=== PATIENT | female | born 1950 | race African-American/Black ===

== ENCOUNTER 2016-10-01 12:13 | Emergency (ER) | payer MEDICARE, OTHER ==
[~2016-10-01] VITALS: Ht 157.5 cm; Wt 73.0 kg
[~2016-10-01 12:13] MED LIST: DOCU100C5 PO; ESOM40CA PO; HYDR-971 PO; METH4TAB2 PO; NIFE30TA9 PO; OXYC1TAB7 PO; TRIA1TAB3 PO
[2016-10-01 12:22] VITALS: BP 163/78
[2016-10-01] MEDS ORDERED: FLUC150T PO (13:10)
[2016-10-01] MEDS ORDERED: NYST50002 PO (13:10)
--- NOTE | 2016-10-01 13:11 | PHYS DOC ---
Past Medical History Past Medical History: Hypertension Past Surgical History: Other Additional Past Surgical Histo: BACK SURGERY, BOWEL RESECTION Alcohol Use: Rarely Drug Use: None Adult General Chief Complaint Chief Complaint: SKIN PROBLEM HPI HPI Patient is a 66 year old female presents emergency department stating that she has a rash in between her breast and just under her breast. She states that it is moist and itchy. She states that she's had this for approximately 3 or 4 days. She's tried using [id number] medications without relief. She denies any shortness of breath or difficulty breathing. She denies any odor coming from the site. Review of Systems Review of Systems Constitutional: Denies fever or chills [] Eyes: Denies change in visual acuity, redness, or eye pain [] HENT: Denies nasal congestion or sore throat [] Respiratory: Denies cough or shortness of breath [] Cardiovascular: No additional information not addressed in HPI [] GI: Denies abdominal pain, nausea, vomiting, bloody stools or diarrhea [] : Denies dysuria or hematuria [] Musculoskeletal: Denies back pain or joint pain [] Integument: rash denies skin lesions [] Neurologic: Denies headache, focal weakness or sensory changes [] Endocrine: Denies polyuria or polydipsia [] Allergies Allergies Allergies Coded Allergies Type Severity Reaction Last Updated Verified No Known Drug Allergies 05/14/15 No Physical Exam Physical Exam Constitutional: Well developed, well nourished, no acute distress, non-toxic appearance. [] HENT: Normocephalic, atraumatic, bilateral external ears normal, oropharynx moist, no oral exudates, nose normal. [] Eyes: PERRLA, EOMI, conjunctiva normal, no discharge. [] Neck: Normal range of motion, no tenderness, supple, no stridor. [] Cardiovascular:Heart rate regular rhythm, no murmur [] Lungs & Thorax: Bilateral breath sounds clear to auscultation [] Skin: Warm, dry, no erythema. Patient with rash noted in between her bilateral breasts area that appears to be red and irritated. It appears to be a yeasty type rash. The area appears to be very moist. Back: No tenderness Extremities: No tenderness, no cyanosis, no clubbing, ROM intact, no edema. [] Neurologic: Alert and oriented X 3, normal motor function, normal sensory function, no focal deficits noted. [] Psychologic: Affect normal, judgement normal, mood normal. [] Current Patient Data Vital Signs Vital Signs Date Time Temp Pulse Resp B/P (MAP) Pulse Ox O2 Delivery O2 Flow Rate FiO2 10/01/16 12:22 98.0 98 18 98 Room Air 98.0 EKG EKG [] Radiology/Procedures Radiology/Procedures [] Course & Med Decision Making Course & Med Decision Making Pertinent Labs and Imaging studies reviewed. (See chart for details) Spoke with patient regards to using Diflucan. She'll also be provided with nystatin powder in which she can placed in the area. Recommended keeping the area clean and dry. She is also requesting information on what to do for itching and irritation explained to her she may take Benadryl [id number] although this will cause drowsiness do not take any be alert and oriented. Patient will be discharged home in stable condition signs symptoms to return back to emergency department as been provided. [] Dragon Disclaimer Dragon Disclaimer This electronic medical record was generated, in whole or in part, using a voice recognition dictation system. Departure Departure Impression: Primary Impression: Vonda infection Disposition: HOME, SELF-CARE Condition: STABLE Referrals: ABBY MILLER MD (PCP) Patient Instructions: Vonda Infection, Adult Additional Instructions: Medication as prescribed. Keep the area clean and dry. You may take Benadryl [id number] to help with irritation and itching as well. This medication will cause drowsiness do not take any be alert and oriented. Follow-up with your primary care physician in the next 5-7 days. Return back to emergency prior signs symptoms of become worse. Scripts Nystatin (NYSTATIN) 50,000,000 Unit Powder.ea. [id number] UNIT PO BID, #1 EACH Prov: SATHYA DORAN APRN 10/01/16 Fluconazole (DIFLUCAN) 150 Mg Tablet 1 TAB PO ONCE, #1 TAB Prov: SATHYA DORAN APRN 10/01/16 SATHYA DORAN APRN October 01, 2016 13:11
== END 2016-10-01 13:40 | disposition home or self-care (01) ==
LOC: ER 13:22
DX: B37.9 Candidiasis, unspecified (principal); I10 Essential (primary) hypertension
CPT/HCPCS: 99283

== ENCOUNTER 2017-06-13 14:09 | Emergency (ER) | payer MEDICARE, OTHER | END 2017-06-13 15:45 | disposition home or self-care (01) | LOC: ER 14:09 | DX: M79.644 Pain in right finger(s) (principal) | CPT/HCPCS: 29125; 73140; 99284-25 ==

== ENCOUNTER 2019-01-23 11:29 | Emergency (ER) | payer MEDICARE, OTHER ==
[~2019-01-23] VITALS: Ht 157.5 cm; Wt 68.9 kg
[~2019-01-23 11:29] MED LIST changes: +DOCU100C28 PO; -DOCU100C5 PO; +FLUC150T PO; +HYDR-3164 PO; -HYDR-971 PO; +NIFE30TA15 PO; -NIFE30TA9 PO; +NYST50002 PO
[2019-01-23 12:21] VITALS: BP 170/89
[2019-01-23] MEDS ORDERED: ORPH100T PO (12:43)
--- NOTE | 2019-01-23 12:43 | PHYS DOC ---
Past Medical History Past Medical History: GERD, High Cholesterol, Hypertension Additional Past Medical Histor: BOWEL OBSTRUCTION Past Surgical History: No Surgical History Additional Past Surgical Histo: BACK SURGERY, BOWEL RESECTION Alcohol Use: Occasionally Drug Use: None Adult General Chief Complaint Chief Complaint: SHOULDER INJURY HPI HPI Patient is a 69 year old female who presents with just got back from going on a cruise and had some heavy suitcases and uses the right arm to lift a suitcase a lot. Patient states that after the first day of this scan having right shoulder pain that went into the shoulder and down into the front of the shoulder and down into the back and on her side. Patient states she thinks she pulled a muscle because it only hurts with movement. Review of Systems Review of Systems Constitutional: Denies fever or chills [] Musculoskeletal: Denies back pain. Right shoulder joint pain [] Integument: Denies rash or skin lesions [] Neurologic: Denies headache, focal weakness or sensory changes [] All other systems were reviewed and found to be within normal limits, except as documented in this note. Allergies Allergies Allergies Coded Allergies Type Severity Reaction Last Updated Verified No Known Drug Allergies 05/14/15 No Physical Exam Physical Exam Constitutional: Well developed, well nourished, no acute distress, non-toxic appearance. [] Skin: Warm, dry, no erythema, no rash. [] Back: No tenderness, no CVA tenderness. [] Extremities: Right shoulder lateral, posterior and anterior tenderness, no cyanosis, no clubbing, ROM intact, no edema. [] Neurologic: Alert and oriented X 3, normal motor function, normal sensory function, no focal deficits noted. [] Psychologic: Affect normal, judgement normal, mood normal. [] Current Patient Data Vital Signs Vital Signs Date Time Temp Pulse Resp B/P (MAP) Pulse Ox O2 Delivery O2 Flow Rate FiO2 01/23/19 12:21 97.7 75 18 170/89 (116) 98 Room Air 97.7 EKG EKG [] Radiology/Procedures Radiology/Procedures [] Course & Med Decision Making Course & Med Decision Making Patient is a 69 year old female who presents with just got back from going on a cruise and had some heavy suitcases and uses the right arm to lift a suitcase a lot. Patient states that after the first day of this scan having right shoulder pain that went into the shoulder and down into the front of the shoulder and down into the back and on her side. Patient states she thinks she pulled a muscle because it only hurts with movement. Patient has full range of motion in the shoulder. Patient rates her pain an 8 out of 10 with movement. Denies any numbness or tingling or coolness of the extremity. Patient denies any skin color changes in the extremity. There is no swelling to the shoulder. No laxity in the joint. No deformity is seen or felt and the shoulder. Patient states she's been taking ibuprofen and Tylenol. Radial pulses are present. Skin pink warm and dry. Ambulatory with a steady gait. Patient is using that extremity. Cap refill less than 3 seconds. Patient is told to use a heating pad and continue taking ibuprofen. Patient is t old to follow-up with her primary care provider and to try not to use the extremity with any heavy lifting until it is healed. Dragon Disclaimer Dragon Disclaimer This electronic medical record was generated, in whole or in part, using a voice recognition dictation system. Departure Departure Impression: Primary Impression: Shoulder strain Disposition: 01 HOME, SELF-CARE Condition: STABLE Referrals: ABBY MILLER MD (PCP) Patient Instructions: Shoulder Pain, Shoulder Sprain Additional Instructions: Follow up with primary care provider. Take medications as prescribed. Continue taking Advil and using a heating pad. Scripts Orphenadrine Citrate (ORPHENADRINE CITRATE) 100 Mg Tablet.er 1 TAB PO BID, #20 TAB 1 Refill Prov: SATHYA CARPIO APRN 01/23/19 Problem Qualifiers Primary Impression: Shoulder strain Encounter type: initial encounter Laterality: right Qualified Codes: S46.911A - Strain of unspecified muscle, fascia and tendon at shoulder and upper arm level, right arm, initial encounter SATHYA CARPIO APRN Jan 23, 2019 12:43
== END 2019-01-23 13:17 | disposition home or self-care (01) ==
LOC: ER 11:29
DX: S46.911A Strain of unspecified muscle, fascia and tendon at shoulder and upper arm level, right arm, initial encounter (principal); K21.9 Gastro-esophageal reflux disease without esophagitis; E78.00 Pure hypercholesterolemia, unspecified; I10 Essential (primary) hypertension; X50.9XXA Other and unspecified overexertion or strenuous movements or postures, initial encounter; Y93.89 Activity, other specified; Y92.89 Other specified places as the place of occurrence of the external cause; Y99.8 Other external cause status
CPT/HCPCS: 99283

== ENCOUNTER → 2019-01-31 | Outpatient (CLI) | payer MEDICARE, OTHER ==
[2019-01-23 12:21] VITALS: BP 170/89
[~2019-01-31] MED LIST changes: +ORPH100T PO
--- NOTE | 2019-01-31 16:51 | RAD ---
RIGHT SHOULDER , 3 VIEWS Clinical Indication: Acute right shoulder pain. Comparison: None. Findings: There is no acute fracture or dislocation. The acromioclavicular and glenohumeral joints are intact. The visualized lung is clear. There is no evidence of a displaced rib fracture. There is no soft tissue abnormality. IMPRESSION: No acute fracture or dislocation. Electronically signed by: Kyle Varela MD (01/31/2019 4:48 PM) [id number]
== END | disposition home or self-care (01) ==
LOC: RAD 11:03
PROVIDERS: ATTEND Family Medicine
DX: M25.511 Pain in right shoulder (principal)
CPT/HCPCS: 73030